=== PATIENT | male | born 1985 | race American Indian/Alaskan Native ===

== ENCOUNTER 2018-01-03 23:44 | Emergency (ER) | payer OTHER ==
[2018-01-03 23:58] VITALS: BP 94/62
[2018-01-04] MEDS ORDERED: SILVER NITRATE TP ONE ×2 (01:00→01:27)
[2018-01-04] MEDS ORDERED: BOOSTRIX IM ONE (01:00)
[2018-01-04] MEDS ORDERED: TYLENOL #3 PO ONE (01:00)
[2018-01-04] MEDS ORDERED: AUGMENTIN 875 MG PO ONE (01:00)
[2018-01-04] MEDS ORDERED: TRIPLE ANTIBIOTIC TP ONE (01:00)
--- NOTE | 2018-01-04 01:04 | Emergency Department Report ---
ED Animal Bite HPI - General Chief Complaint: Animal Bite Stated Complaint: ANIMAL BITE Time Seen by Provider: 01/04/18 00:49 Source: patient, police Mode of arrival: Wheelchair Limitations: No Limitations - History of Present Illness Initial Comments: Patient is a 32-year-old male in police custody presents to ED after being bitten by a canine dog. Patient states he was running when the dog attacked him. His right leg. Patient states he only sustained bite alonso to the right anterior and posterior thigh and knee area. Patient states he had no loss of consciousness or hit his head during the incident. Patient denies any medication allergy or taking any medication at this moment. MD Complaint: animal bite - Related Data Previous Rx's Medication Instructions Recorded Last Taken Type Amoxicillin [Trimox CAP] 500 mg PO Q8H #30 capsule 05/21/15 Unknown Rx HYDROcodone/APAP 10-325 [Thornton 1 each PO Q6HR PRN #12 tablet 05/21/15 Unknown Rx 10/325] Acetaminophen/Codeine [Tylenol 1 tab PO Q8H #12 tablet 01/04/18 Unknown Rx /Codeine # 3 tab] Amoxicillin/K Clav Tab [Augmentin 1 each PO BID #20 tablet 01/04/18 Unknown Rx 875MG TAB] Ibuprofen [Motrin] 800 mg PO Q8HR PRN #30 tablet 01/04/18 Unknown Rx Allergies Allergy/AdvReac Type Severity Reaction Status Date / Time No Known Allergies Allergy Unverified 05/21/15 13:42 ED Review of Systems ROS: Stated complaint: ANIMAL BITE Other details as noted in HPI Constitutional: denies: chills, fever Eyes: denies: eye pain, eye discharge, vision change ENT: denies: ear pain, throat pain Respiratory: denies: cough, shortness of breath, wheezing Cardiovascular: denies: chest pain, palpitations Endocrine: no symptoms reported Gastrointestinal: denies: abdominal pain, nausea, diarrhea Genitourinary: denies: urgency, dysuria Musculoskeletal: denies: back pain, joint swelling, arthralgia Skin: denies: rash, lesions Neurological: denies: headache, weakness, paresthesias Psychiatric: denies: anxiety, depression Hematological/Lymphatic: denies: easy bleeding, easy bruising ED Past Medical Hx - Past Medical History Previous Medical History?: No - Social History Smoking Status: Current Every Day Smoker Substance Use Type: Marijuana - Medications Home Medications: Home Medications Medication Instructions Recorded Confirmed Last Taken Type Amoxicillin [Trimox CAP] 500 mg PO Q8H #30 capsule 05/21/15 Unknown Rx HYDROcodone/APAP 10-325 [Thornton 1 each PO Q6HR PRN #12 tablet 05/21/15 Unknown Rx 10/325] Acetaminophen/Codeine [Tylenol 1 tab PO Q8H #12 tablet 01/04/18 Unknown Rx /Codeine # 3 tab] Amoxicillin/K Clav Tab [Augmentin 1 each PO BID #20 tablet 01/04/18 Unknown Rx 875MG TAB] Ibuprofen [Motrin] 800 mg PO Q8HR PRN #30 tablet 01/04/18 Unknown Rx ED Physical Exam - General Limitations: No Limitations General appearance: alert, in no apparent distress - Head Head exam: Present: atraumatic, normocephalic - Eye Eye exam: Present: normal appearance - ENT ENT exam: Present: mucous membranes moist - Neck Neck exam: Present: normal inspection - Respiratory Respiratory exam: Present: normal lung sounds bilaterally. Absent: respiratory distress - Cardiovascular Cardiovascular Exam: Present: regular rate, normal rhythm. Absent: systolic murmur, diastolic murmur, rubs, gallop - GI/Abdominal GI/Abdominal exam: Present: soft, normal bowel sounds - Rectal Rectal exam: Present: deferred - Extremities Exam Extremities exam: Present: normal inspection - Back Exam Back exam: Present: normal inspection - Neurological Exam Neurological exam: Present: alert, oriented X3 - Psychiatric Psychiatric exam: Present: normal affect, normal mood - Skin Skin exam: Present: warm, dry, intact, normal color, other (multiple the puncture wounds and abrasions on anterior and posterior aspect of the lower thigh of the left). Absent: rash, cyanosis, diaphoretic ED Course Vital Signs 01/03/18 23:50 Temperature 97.7 F Pulse Rate 73 Respiratory 20 Rate Blood Pressure 94/62 O2 Sat by Pulse 97 Oximetry Critical care attestation.: If time is entered above; I have spent that time in minutes in the direct care of this critically ill patient, excluding procedure time. ED Disposition Clinical Impression: Abrasion Animal bite of right thigh Qualifiers: Encounter type: initial encounter Qualified Code(s): S71.151A - Open bite, right thigh, initial encounter Disposition: TO HOME OR SELFCARE Is pt being admited?: No Does the pt Need Aspirin: No Condition: Stable Instructions: Animal Bite (ED), Wound Infection (ED), Acute Wound Care (ED) Additional Instructions: Make sure to follow up with the primary care physician as discussed. Take all your medications as you've been prescribed. If you have any worsening symptoms or develop new symptoms please return to ED immediately. Prescriptions: Acetaminophen/Codeine [Tylenol /Codeine # 3 tab] 1 tab PO Q8H #12 tablet Amoxicillin/K Clav Tab [Augmentin 875MG TAB] 1 each PO BID #20 tablet Ibuprofen [Motrin] 800 mg PO Q8HR PRN #30 tablet PRN Reason: Pain Referrals: EMELI LINARES MD [Primary Care Provider] - 3-5 Days [facility] [Outside] - 3-5 Days [facility] [Outside] - 3-5 Days [facility] [Outside] - 3-5 Days Time of Disposition: 01:50 Medical Decision Making - [facility] 32-year-old male presents with several dog bites to the right lower extremity ED course: Patient received pain medication, one dose of antibiotic, tetanus booster. Officers confirmed that the canine dog was vaccinated up-to-date and was examined after the incident with no missing to Bite alonso or puncture wounds with some some abrasions. Wound was cleaned with Betadine and flushed with the dangers cc of normal saline. Wounds were wrapped with oil emulsion dressing and sterile gauze Bleeding controlled with silver nitrate. Discussed with patient will need to wound check in 3 days. Patient will be sent home on antibiotics to prevent infection. Discussed with the officers he would need these medications he is going to [facility]
[2018-01-04] MEDS ORDERED: NACL 0.9% 500 ML IR ONE (01:44)
[2018-01-04] MEDS ORDERED: NACL 0.9% 500 ML IRRIGATION ONE (01:45)
[2018-01-04] MEDS ORDERED: NACL 0.9% IR ONE (01:48)
== END 2018-01-04 02:30 | disposition home or self-care (01) ==
LOC: ED 23:44
DX: S71.151A Open bite, right thigh, initial encounter (principal); F17.200 Nicotine dependence, unspecified, uncomplicated; F12.10 Cannabis abuse, uncomplicated; W54.0XXA Bitten by dog, initial encounter; Y93.02 Activity, running; Y99.8 Other external cause status; Y92.89 Other specified places as the place of occurrence of the external cause
CPT/HCPCS: 90471; 90715; A6250